=== PATIENT | female | born 1960 | race Caucasian/White ===

== ENCOUNTER 2016-02-29 15:47 | Observation (INO) | payer BC, OTHER ==
--- NOTE | 2016-02-29 16:15 | CPEKG ---
Heart Rate: 68 RR Interval: 882 P-R Interval: 164 QRSD Interval: 84 QT Interval: 436 QTC Interval: 464 P [place]: 13 QRS [place]: 18 T Wave [place]: 35 EKG Severity - NORMAL ECG - EKG Impression: SINUS RHYTHM Electronically Signed By: Mario Weiss 29-Feb-2016 20:16:23
[2016-02-29] MEDS ORDERED: NS 500 ML IV ONE (16:16)
[2016-02-29] MEDS ORDERED: ASPIRIN 81 MG CHEWABLE TAB PO ONE (16:16)
[2016-02-29] MEDS ORDERED: NITROGLYCERIN 0.4 MG BTL SL PRN ×2 (16:16→19:15)
--- NOTE | 2016-02-29 16:16 | EDPHY ---
H & P Stated Complaint: Nausea off and on since last celio;chest pressure today HPI/ROS: HPI CHIEF COMPLAINT: Chest pressure, nausea HISTORY OF PRESENT ILLNESS: This patient very pleasant 55-year-old female, significant past medical history for high non STEMI November 30, with 3 stents placed 1 lad 1 in the circ and a marginal branch, hypertension, hyperlipidemia, hypothyroidism, presents to the emergency roomWith over 24 hours of intermittent nausea, no vomiting, no fever or cough or shortness of breath, however today around 2 o'clock or 2.5 hours ago she developed a discomfort pressure-like sensation in her chest. She became concerned that she was having this discomfort, with associated nausea and due to her recent stent placement in November in underlying coronary artery disease she decided to come to the emergency room. upon arrival to the emergency room does complain of 3 out of 10 chest pressure with associated nausea no arm pain, no vomiting, no fever, no pleuritic pain, no shortness of breath. Past Medical History: Coronary artery disease, hypertension, hyperlipidemia Past Surgical History:PTCA with 3 stents Social History: denies daily use drugs alcohol tobacco products Family History: noncontributory ROS REVIEW OF SYSTEMS: A comprehensive 10 point review of systems is otherwise negative aside from elements mentioned in the history of present illness. Exam Constitutional triage nursing summary reviewed, vital signs reviewed, awake/ alert. Eyes normal conjunctivae and sclera, EOMI, PERRLA. HENT normal inspection, atraumatic, moist mucus membranes, no epistaxis, neck supple/ no meningismus, no raccoon eyes. Respiratory clear to auscultation bilaterally, normal breath sounds, no respiratory distress, no wheezing. Cardiovascular rate normal, regular rhythm, no murmur, no edema, distal pulses normal. Gastrointestinal soft, non-tender, no rebound, no guarding, normal bowel sounds, no distension, no pulsatile mass. Genitourinary no CVA tenderness. Musculoskeletal no midline vertebral tenderness, full range of motion, no calf swelling, no tenderness of extremities, no meningismus, good pulses, neurovascularly intact. Skin pink, warm, & dry, no rash, skin atraumatic. Neurologic awake, alert and oriented x 3, AAOx3, moves all 4 extremities equally, motor intact, sensory intact, CN II-XII intact, normal cerebellar, normal vision, normal speech. Psychiatric normal mood/affect. Heme/Lymph/Immune no lymphadenopathy. Differential diagnosis includes but is not limited to: ACS, atypical chest pain , pneumothorax, pneumonia, pulmonary embolism, aortic dissection, congestive heart failure, tumor, musculoskeletal pain, esophageal pain, GERD, peptic ulcer disease, pancreatitis Medical Decision Making: this patient had an IV established obtain blood work, troponin, EKG, chest x-ray, she will need ACS evaluation and rule out. I will touch base with her shelver as she had 3 stents placed in November. She is here with nausea and chest pressure. Will rule out STEMI versus non STEMI Re-evaluation: EKG interpretation by me on record in [employer] system. Impression time of EKG 16 11, this is sinus rhythm rate of 68, no acute ischemic changes seen on EKG specifically no ST elevation, ST depression, T-wave abnormality there is flattening of the ST segment V1, V2, this appears very similar to previous EKG dated 12/02/2015 ED x-ray chest two view: negative for acute cardiopulmonary disease. image interpreted by myself. 1729: On re-examination at this time patient is resting comfortably no acute distress. she is chest pain-free at this time. I spoke with the patient extensively about being admitted for ACS rule out, serial enzymes, serial EKGs an echocardiogram she is agreeable for this. Patient be admitted to Dr. Quevedo the hospitalist service for observation serial enzymes given her chest pressure and nausea. I will touch base with the shelver Dr. Cisneros and/or Dr. Alvarez Blackwell 1753: Spoke with Dr. Munoz who understands the patient is coming into the hospital. 175: Also spoke with Dr. Blackwell understands the patient is coming the hospital they will consult on her in the hospital. Source: Patient - Personal History LMP (Females 10-55): Post Menopausal Current Tetanus Diphtheria and Acellular Pertussis (TDAP): Yes Tetanus Vaccine Date: < 10 years - Medical/Surgical History Hx Asthma: No Hx Chronic Respiratory Disease: No Hx Diabetes: No Hx Cardiac Disease: No Hx Renal Disease: No Hx Cirrhosis: No Hx Alcoholism: No Hx HIV/AIDS: No Hx Splenectomy or Spleen Trauma: No Other PMH: shingles, hypertension, hypothyroidism, high cholesterol. stents x 29 Nov 2015 - Social History Smoking Status: Former smoker Constitutional: Initial Vital Signs Temperature (C) 36.5 C 02/29/16 15:50 Heart Rate 92 01/03/17 15:50 Respiratory Rate 18 02/29/16 15:50 Blood Pressure 118/86 H 02/29/16 15:50 O2 Sat (%) 97 02/29/16 15:50 O2 Delivery Mode Room Air Allergies/Adverse Reactions: penicillin V potassium [From Pen-Vee K] Allergy (Mild, Verified 02/29/16 15:55) Rash Sulfa (Sulfonamide Antibiotics) Allergy (Mild, Verified 02/29/16 15:55) Rash Home Medications: Medication Instructions Recorded Cetirizine [ZyrTEC 10 mg (*)] 10 mg PO DAILY 11/30/15 Herbals/Supplements -Info Only 1 ea PO DAILY 12/01/15 LISINOPRIL/HYDROCHLOROTHIAZIDE 1 each PO DAILY 12/01/15 [PRINZIDE 20-25 MG TABLET] Aspirin EC [Aspirin EC 325 mg (*)] 325 mg PO DAILY #0 tab 12/02/15 Metoprolol Tartrate [Lopressor 25 25 mg PO BID #0 tab 12/02/15 mg (*)] Nitroglycerin [Nitrostat 0.4 mg 0.4 mg SL ONCE PRN #0 btl 12/02/15 (*)] Prasugrel HCl [Effient 10mg (*)] 10 mg PO DAILY #0 tab 12/02/15 Rosuvastatin Calcium [Crestor 40mg 40 mg PO DAILY #0 tab 12/02/15 (*)] Levothyroxine [Synthroid 75 mcg 75 mcg PO DAILY06 02/29/16 (*)] Medical Decision Making - Data Points Laboratory Results: Laboratory Results 02/29/16 16:00 02/29/16 16:00 Medications Given: Discontinued Medications Aspirin (Aspirin) 324 mg PO EDNOW ONE Stop: 02/29/16 16:17 Last Admin: 02/29/16 16:19 Dose: Not Given Sodium Chloride (Ns) 500 mls @ 0 mls/hr IV ONCE ONE PRN Reason: As Directed Stop: 02/29/16 16:17 Last Admin: 02/29/16 16:19 Dose: 500 mls Metoprolol Tartrate (Lopressor) 25 mg PO BID HEAVEN Stop: 08/27/16 20:59 Last Admin: 02/29/16 20:46 Dose: 25 mg Departure - Departure Disposition: [facility] Acute Clinical Impression: Chest pressure, Nausea Condition: Fair
[2016-02-29 16:21] LABS: % IMMATURE GRANULYOCYTES 0.3 % (0.0-1.1); ABSOLUTE IMMATURE GRANULOCYTES 0.02 10^3/uL (0.00-0.10); ADD DIFF? NO; ADD MORPH? NO; ADD SCAN? NO; ATYPICAL LYMPHOCYTE FLAG 20 (0-99); FRAGMENT RBC FLAG 0 (0-99); HEMATOCRIT 41.8 % (38.0-47.0); LEFT SHIFT FLG 0 (0-99); LIPEMIA HEMOLYSIS FLAG 90 (0-99); MEAN CELL HEMOGLOBIN 35.6 pg (27.9-34.1); MEAN CELL HEMOGLOBIN CONCENTR. 35.9 g/dL (32.4-36.7); MEAN CELL VOLUME 99.3 fL (81.5-99.8); MEAN PLATELET VOLUME 8.7 fL (8.7-11.7); PLATELET CLUMPS FLAG 20 (0-99); PLATELET COUNT 360 10^3/uL (150-400); RED BLOOD CELL COUNT 4.21 10^6/uL (4.18-5.33); RED CELL DISTRIBUTION WIDTH 11.6 % (11.5-15.2)
[2016-02-29 16:31] LABS: INR 0.93 (0.83-1.16); PROTIME(PATIENT) 12.4 SEC (12.0-15.0)
[2016-02-29 16:32] LABS: APTT 25.6 SEC (23.0-38.0)
[2016-02-29 16:41] LABS: ALANINE AMINOTRANSFERASE 75 IU/L (9-52); ALBUMIN 4.8 g/dL (3.5-5.0); ALKALINE PHOSPHATASE 116 IU/L (38-126); ANION GAP 14 mEq/L (8-16); ASPARTATE AMINOTRANSFERASE 50 IU/L (14-46); BILIRUBIN,TOTAL 0.9 mg/dL (0.1-1.4); BILIRUBIN-CONJUGATED 0.5 mg/dL (0.0-0.5); BILIRUBIN-UNCONJUGATED 0.4 mg/dL (0.0-1.1); CALCIUM 10.9 mg/dL (8.5-10.4); CARBON DIOXIDE 24 mEq/l (22-31); CHLORIDE 100 mEq/L (97-110); CREATININE 0.7 mg/dL (0.6-1.0); GLOMERULAR FILTRATION RATE > 60; GLUCOSE 96 mg/dL (70-100); POTASSIUM 3.5 mEq/L (3.5-5.2); SODIUM 138 mEq/L (134-144); TOTAL PROTEIN 7.9 g/dL (6.3-8.2)
--- NOTE | 2016-02-29 16:48 | DX ---
Chest, PA and Lateral History: Chest pain. Urinary artery disease. Findings: Lungs clear. Heart normal. Three stents are seen overlying the left heart circulation una No pneumothorax or pleural effusion. EKG leads overlie the chest. There is a mild degenerative taylor ge in the midthoracic spine. No free air or dilated bowel loop seen beneath either hemidiaphragm. Impression: Negative.
[2016-02-29 16:52] LABS: CREATINE KINASE-MB FRACTION 2.08 ng/mL (0-3.19); TROPONIN I < 0.012 ng/mL (0-0.034)
[2016-02-29 18:20] VITALS: RESP 18
[2016-02-29] MEDS ORDERED: ACETAMINOPHEN 325 MG TAB PO PRN (19:15)
[2016-02-29] MEDS ORDERED: ONDANSETRON 4 MG/2 ML VIAL IVP PRN (19:15)
[2016-02-29] MEDS ORDERED: ONDANSETRON DISINTEGRATING 4 MG TAB PO PRN (19:15)
[2016-02-29 19:32] VITALS: BP 120/81; PULSE 64; TEMP 98; O2SAT 97
--- NOTE | 2016-02-29 19:53 | GHP ---
[f rep st] HISTORY AND PHYSICAL DATE OF ADMISSION: 02/29/2016 CHIEF COMPLAINT: Chest pressure. 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 Blackwell. HISTORY OF PRESENT ILLNESS: The patient is a 55-year-old female with a history of CAD newly diagnosed November 2015 after presenting with unstable angina and an NSTEMI. At that time, she underwent cardiac catheterization with stent to the LAD, OM and circumflex. She has been compliant with all of her medications. Today, she was at work sitting at her desk at approximately 2:00 p.m. and developed a warm pressure in the right side in center of her chest. She wondered if it was heartburn, but she has never had that in the past. There was no associated radiation, shortness of breath, nausea or diaphoresis at that time. She left work at 3:15 and went to [employer]. There, she felt a little more stressed and developed the same kind of discomfort. With that, she had chills, sweats and some nausea. She is active and does things like skiing without chest pain or shortness of breath. REVIEW OF SYSTEMS: A completed 10-point review of systems, negative except as noted in HPI. PAST MEDICAL HISTORY: 1. CAD with stent to left circumflex OM and LAD. 2. Hyperlipidemia. 3. Hypertension. 4. Hypothyroidism. PAST SURGICAL HISTORY: Cardiac catheterization with 3 stents. FAMILY HISTORY: Maternal grandfather with an [place], hyperlipidemia. 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 She lives in [place]. She smoked a pack a day for 13 years. Alcohol: Socially. No illicits. ALLERGIES: Penicillin and sulfa. MEDICATIONS: Crestor 40 mg daily, Prasugrel 10 mg daily, nitroglycerin p.r.n., metoprolol 25 mg twice daily, levothyroxine 75 mcg daily, lisinopril/ hydrochlorothiazide daily, herbal supplement, Zyrtec, aspirin 325. PHYSICAL EXAM: VITAL SIGNS: Temperature 36.5, blood pressure 129/85, heart rate 70, respiration 18, 95% on room air. GENERAL: She is tearful, anxious in bed. CV: Regular rate, rhythm. No murmurs, gallops, or rubs. No reproducible chest pain. No JVD. No lower extremity edema. LUNGS: Clear to auscultation. ABDOMEN: Soft, nontender, nondistended. Positive bowel sounds. : No suprapubic tenderness. MUSCULOSKELETAL: 5/5 upper lower extremity strength. NEURO: 2 through 12 intact. No focal deficits. PSYCH: Alert and oriented x3.. LABS: WBC 7.2, hemoglobin 15, hematocrit 41, platelets 360. Coags within normal. Sodium 138, potassium 3.5, chloride 100, carbon dioxide 24, BUN 13, creatinine 0.7, calcium 10.9, AST 50, ALT 75, CKD less than 0.012. BNP is 58, lipase 165. Chest x-ray personally reviewed by me. No evidence of opacity or effusion. EKG: Normal sinus rhythm. Heart rate 68. ST flattening in leads 3 and V2. ASSESSMENT AND PLAN: 1. Atypical chest pain: The patient with significant history of coronary artery disease with recent stents in November 2015. She has been compliant with her medications. Initial EKG and troponin are reassuring, negative for ischemia. Will monitor on telemetry and repeat both troponin and EKG. Dr. Cespedes with the emergency room will contact Dr. Blackwell's office. 2. Hyperlipidemia. Continue statin. 3. History of coronary artery disease status post 3 stents recently. Continue Effient, beta-may, statin and aspirin. 4. Benign hypertension. Continue medications. 5. Hypothyroid. Continue Synthroid. 6. Diet. Cardiac. 7. Deep vein thrombosis prophylaxis. Ambulatory. DISPOSITION: Patient warrants observation, admission. Given acute chest pressure with significant history of CAD, will monitor on telemetry and serial troponin and EKG. /[id number]/MODL MTDD
[2016-02-29] MEDS ORDERED: METOPROLOL TARTRATE 25 MG TAB PO SCH (21:00)
--- NOTE | 2016-02-29 21:21 | CPEKG ---
Heart Rate: 73 RR Interval: 822 P-R Interval: 176 QRSD Interval: 82 QT Interval: 404 QTC Interval: 446 P [place]: 18 QRS [place]: 10 T Wave [place]: 21 EKG Severity - NORMAL ECG - EKG Impression: SINUS RHYTHM Electronically Signed By: Aleks Stacy 29-Feb-2016 21:33:07
--- NOTE | 2016-03-01 01:29 | GDS ---
[f rep st] DISCHARGE SUMMARY DISCHARGE DIAGNOSES: 1. Coronary artery disease. 2. Hypothyroidism. 3. Atypical chest pain. 4. Hyperlipidemia. 5. Hypertension. HOSPITAL COURSE BY PROBLEM: Atypical chest pain. See the history and physical dated earlier this evening. The patient was admitted for atypical chest pain and serial troponins and EKGs were negative. Patient chose to go home. I discussed this case with Dr. Blackwell who will follow up with her in clinic on . We will continue her home medications. /[id number]/MODL MTDD
[2016-03-01] MEDS ORDERED: LEVOTHYROXINE 75 MCG TAB PO SCH (06:00)
[2016-03-01] MEDS ORDERED: CETIRIZINE 10 MG TAB PO SCH (09:00)
[2016-03-01] MEDS ORDERED: ASPIRIN EC 325 MG TAB PO SCH (09:00)
[2016-03-01] MEDS ORDERED: LISINOPRIL/HCTZ 10/12.5 MG 1 EA TAB PO SCH (09:00)
[2016-03-01] MEDS ORDERED: Herbals/Supplements -Info Only PO SCH (09:00)
[2016-03-01] MEDS ORDERED: ROSUVASTATIN CALCIUM 40 MG TAB PO SCH (09:00)
[2016-03-01] MEDS ORDERED: PRASUGREL HCL 10 MG TAB PO SCH (09:00)
== END 2016-02-29 22:59 | disposition home or self-care (01) ==
LOC: INTOOBSV 17:28 → F2W 18:05
PROVIDERS: ADMIT Internal Medicine; ATTEND Internal Medicine
DX: R07.9 Chest pain, unspecified (principal); I25.10 Atherosclerotic heart disease of native coronary artery without angina pectoris; E03.9 Hypothyroidism, unspecified; E78.5 Hyperlipidemia, unspecified; I10 Essential (primary) hypertension; I25.2 Old myocardial infarction; Z95.5 Presence of coronary angioplasty implant and graft; Z87.891 Personal history of nicotine dependence; Z78.0 Asymptomatic menopausal state; Z88.0 Allergy status to penicillin; Z88.2 Allergy status to sulfonamides
CPT/HCPCS: 71020; 93005; G0378

== ENCOUNTER → 2016-11-13 | Outpatient (CLI) | payer OTHER | LOC: FIMAGING 08:23 | PROVIDERS: ATTEND Family Medicine | DX: Z12.31 Encounter for screening mammogram for malignant neoplasm of breast (principal) | CPT/HCPCS: G0202 ==

== ENCOUNTER → 2018-04-15 | Outpatient (CLI) | payer OTHER | LOC: FIMAGING 13:40 | PROVIDERS: ATTEND Family Medicine | DX: Z12.31 Encounter for screening mammogram for malignant neoplasm of breast (principal) ==